=== PATIENT | female | born 1950 | race Caucasian/White ===

== ENCOUNTER 2019-11-30 14:05 | Day surgery (SDC) | payer MEDICARE ==
[2019-11-25 15:39] LABS: BASOPHILS # (AUTO) 0.1 X10'3 (0-0.2); BASOPHILS % (AUTO) 0.6 % (0-1); EOSINOPHILS # (AUTO) 0.1 X10'3 (0-0.9); EOSINOPHILS % (AUTO) 1.2 % (0-6); HEMATOCRIT 40.3 % (35.0-45.0); HEMOGLOBIN 13.6 g/dl (12.0-16.0); LYMPHOCYTES # (AUTO) 3.1 X10'3 (1.1-4.8); LYMPHOCYTES % (AUTO) 30.1 % (21-51); MEAN CORPUSCULAR HEMOGLOBIN 33.6 PG (27.0-31.0); MEAN CORPUSCULAR HGB CONC 33.7 g/dL (33.0-36.5); MEAN CORPUSCULAR VOLUME 99.6 FL (78-98); MEAN PLATELET VOLUME 9.6 FL (7.4-10.4); MONOCYTES # (AUTO) 0.8 X10'3 (0-0.9); MONOCYTES % (AUTO) 8.3 % (2-12); NEUTROPHILS # (AUTO) 6.1 X10'3 (1.8-7.7); NEUTROPHILS % (AUTO) 59.8 % (42-75); PLATELET COUNT 221 X10'3 (140-440); RED BLOOD COUNT 4.05 X10'6 (4.20-5.60); RED CELL DISTRIBUTION WIDTH 13.7 % (11.5-14.5); WHITE BLOOD COUNT 10.2 X10'3 (4.5-11.0)
[2019-11-25 15:45] LABS: GLUCOSE 74 MG/DL (70-104)
[2019-11-25 15:46] LABS: ALBUMIN 3.5 G/DL (3.4-5.0); ANION GAP 8 (8-16); BLOOD UREA NITROGEN 18 MG/DL (7-18); BUN/CREATININE RATIO 16.1 (6.6-38.0); CALCIUM 8.7 MG/DL (8.5-10.1); CHLORIDE 105 MMOL/L (99-107); CREATININE 1.12 MG/DL (0.40-0.90); POTASSIUM 3.6 MMOL/L (3.5-5.1); SODIUM 144 MMOL/L (135-145); TOTAL CARBON DIOXIDE 31.5 MMOL/L (24-32); eGFR 48 ML/MIN
[2019-11-25 15:50] LABS: PARTIAL THROMBOPLASTIN TIME 28 SECONDS (22-32)
[~2019-11-30] VITALS: Ht 165.1 cm; Wt 69.6 kg
[2019-11-30] VITALS (8 sets, daily range): BP systolic 98–127; BP diastolic 48–78
[2019-11-30] MEDS ORDERED: FAMO20TA8 PO (14:54)
[2019-11-30] MEDS ORDERED: ZOLP10TA PO (14:54)
[2019-11-30] MEDS ORDERED: METO-539 PO (14:54)
[2019-11-30] MEDS ORDERED: ATOR40TA PO (14:54)
[2019-11-30] MEDS ORDERED: TAPE50TA2 PO (14:54)
[2019-11-30] MEDS ORDERED: CITA20TA28 PO (14:54)
[2019-11-30] MEDS ORDERED: CHOL500049 PO (14:54)
[2019-11-30] MEDS ORDERED: LEVO75TA PO (14:54)
[2019-11-30] MEDS ORDERED: NITR0.4T51 SL (14:54)
[2019-11-30] MEDS ORDERED: CLOP75TA15 PO (14:54)
[2019-11-30] MEDS ORDERED: LYR75C PO (14:54)
[2019-11-30] MEDS ORDERED: LORazepam 0.5 MG tablet PO PRN (15:40)
[2019-11-30] MEDS ORDERED: normal saline 1000ml 1,000 ML IV SCH (15:40)
[2019-11-30] MEDS ORDERED: diphenhydrAMINE 25mg capsule PO PRN (15:40)
[2019-11-30] MEDS ORDERED: iohexol 350MG/ML 100ml bottle IV ONE (16:15)
[2019-11-30] MEDS ORDERED: fentaNYL/PF 50MCG/1 ML 2ML syringe ONE (16:15)
[2019-11-30] MEDS ORDERED: midazolam 2 mg/2 ml injection ONE ×2 (16:15→16:49)
[2019-11-30] MEDS ORDERED: LIDOcaine 1% (10mg/ml)w/preservative injection 20ml MDV ONE (16:15)
[2019-11-30] MEDS ORDERED: proCHLORperazine 10 MG/2 ml inj ONE (16:51)
[2019-11-30] MEDS ORDERED: HYDROcodone/acetaminophen 10/325mg tab PO PRN (17:50)
[2019-11-30] MEDS ORDERED: OXAZEpam 15mg capsule PO PRN (17:50)
[2019-11-30] MEDS ORDERED: HYDROcodone/acetaminophen 5mg/325mg tablet PO PRN (17:50)
[2019-11-30] MEDS ORDERED: proCHLORperazine 10 MG/2 ml inj IV PRN (17:50)
[2019-11-30] MEDS ORDERED: ondansetron/PF 4mg/2ml inj IV PRN (17:50)
== END 2019-11-30 20:10 | disposition home or self-care (01) ==
LOC: SSTAY O 14:05
PROVIDERS: ATTEND Internal Medicine Interventional Cardiology
DX: R94.39 Abnormal result of other cardiovascular function study (principal); R07.9 Chest pain, unspecified; I25.10 Atherosclerotic heart disease of native coronary artery without angina pectoris; I10 Essential (primary) hypertension; E78.5 Hyperlipidemia, unspecified; I25.2 Old myocardial infarction; G47.33 Obstructive sleep apnea (adult) (pediatric); M81.0 Age-related osteoporosis without current pathological fracture; K21.9 Gastro-esophageal reflux disease without esophagitis; G89.29 Other chronic pain; Z79.899 Other long term (current) drug therapy; Z85.828 Personal history of other malignant neoplasm of skin; Z88.2 Allergy status to sulfonamides
CPT/HCPCS: 36415; 80048; 85025; 85610; 85730; 93005; 93459; 99152; C1769; J0780; J1644; J2001; J2250; J3010; J7030; Q0163; Q9967; A4620; A6258

== ENCOUNTER 2021-07-31 13:11 | Day surgery (SDC) | payer MEDICARE, OTHER ==
[~2021-07-31] VITALS: Ht 165.1 cm; Wt 70.4 kg
[~2021-07-31 13:11] MED LIST: ATOR40TA PO; CHOL500049 PO; CITA20TA28 PO; CLOP75TA15 PO; FAMO20TA8 PO; LEVO75TA PO; LYR75C PO; METO-539 PO; NITR0.4T51 SL; TAPE50TA2 PO; ZOLP10TA PO
[2021-07-31] MEDS ORDERED: MIDAZolam 1 MG/ML 5ML VIAL ONE (13:18)
[2021-07-31] MEDS ORDERED: fentaNYL/PF 50MCG/1 ML 2ML syringe ONE (13:18)
[2021-07-31 13:30] VITALS: BP 128/65
[2021-07-31 15:30] VITALS: BP 119/58
[2021-07-31 15:40] VITALS: BP 114/56
[2021-07-31 15:50] VITALS: BP 125/60
[2021-07-31 16:00] VITALS: BP 129/72
== END 2021-07-31 16:10 | disposition home or self-care (01) ==
LOC: GI LAB 13:11
PROVIDERS: ATTEND Internal Medicine Gastroenterology
DX: Z12.11 Encounter for screening for malignant neoplasm of colon (principal); D12.2 Benign neoplasm of ascending colon; D12.3 Benign neoplasm of transverse colon; D12.5 Benign neoplasm of sigmoid colon; K57.30 Diverticulosis of large intestine without perforation or abscess without bleeding; K64.8 Other hemorrhoids; I25.2 Old myocardial infarction; Z95.1 Presence of aortocoronary bypass graft; Z79.899 Other long term (current) drug therapy; Z86.010 Personal history of colon polyps; Z80.0 Family history of malignant neoplasm of digestive organs
CPT/HCPCS: 45380; 45385; 99153; C1773; G0500; J2250; J3010; J7040; Z7512; 88305; 99152; A4620